=== PATIENT | female | born 1985 | race Caucasian/White ===

== ENCOUNTER → 2018-02-07 | Outpatient (CLI) | payer OTHER ==
--- NOTE | 2018-02-08 13:09 | EEG PRO FEE REPORT ---
EEG INTERPRETATION PATIENT NAME: GAMALIEL RICH ROOM#: ORDER#: [id number] DATE OF STUDY: : 1985 REFERRING MD: HASMUKH BLEDSOE M.D. MEDICATIONS: Vitamin D, Flonase, refresh tears, Mirena, Robinul, retnig cream, Cymbalta, Magnesium oxide, Propanolol, Ibuprofen History This is a 32 year old right handed woman with a history of anxiety, chronic pain from hip, and episodes of twitching from the neck down since she returned from [place]. These occur more when tired or stressed. This EEG was requested for twitching episodes. EEG Interpretation This EEG was recorded in the awake, drowsy, and sleep states. The awake EEG is characterized by a well organized background with a well developed and reactive posterior dominant rhythm of 9 Hz. There were multiple episodes of shoulder and/or leg jerks. These were isolated twitches. There were no epileptiform correlates. Many of these episodes were associated with drowsiness or arousal. Drowsiness is characterized by slowing of the background rhythms. Vertex waves are seen in the midline head region. Sleep spindles were briefly noted in the midline head region. Photic stimulation resulted in a good driving response. Hyperventilation resulted in generalized slowing of the background. There were no epileptiform abnormalities. The EKG showed a regular rhythm. EEG Impression This EEG is within normal limits for age. The episodes of shoulder and/or leg jerks had no epileptic correlates. They may be consistent with hypnic jerks. INTERPRETING PHYSICIAN: STEPHANIE GUZMAN M.D. /: MTEFALF TT: 1249 ID: [id number] /: [id number] TD: 1213 JOB: [id number] cc:Yosvany GARCÍA M.D. > MTDD
== END ==
LOC: NEURO 07:42
PROVIDERS: ATTEND Pediatrics
DX: G25.3 Myoclonus (principal); R51 Headache; H53.2 Diplopia
CPT/HCPCS: 95819